=== PATIENT | female | born 1950 | race African-American/Black ===

== ENCOUNTER 2016-10-23 11:08 | Emergency (ER) | payer SELFPAY ==
[~2016-10-23] VITALS: Ht 165.1 cm; Wt 99.8 kg
[2016-10-23 11:08] VITALS: BP 0/0
[2016-10-23] MEDS ORDERED: SODIUM BICARBONATE 8.4% INJ 50ML SYRINGE ONE (11:12)
[2016-10-23] MEDS ORDERED: EPINEPHrine HCL 1 MG/10 ML SYRG ONE (11:12)
[2016-10-23] MEDS ORDERED: EPINEPHrine HCL 1 MG/10 ML SYRG IV ONE ×2 (16:21→21:00)
[2016-10-23] MEDS ORDERED: DEXTROSE (50%) 50ML SYRG IV ONE (16:21)
[2016-10-23] MEDS ORDERED: SODIUM BICARBONATE 8.4% INJ 50ML SYRINGE IV ONE ×2 (16:21→21:00)
== END 2016-10-23 18:53 | disposition expired ==
LOC: ER 11:08
DX: I46.9 Cardiac arrest, cause unspecified (principal); I48.91 Unspecified atrial fibrillation; J44.9 Chronic obstructive pulmonary disease, unspecified; K21.9 Gastro-esophageal reflux disease without esophagitis; I10 Essential (primary) hypertension; R41.82 Altered mental status, unspecified; Z95.1 Presence of aortocoronary bypass graft; Z88.0 Allergy status to penicillin
CPT/HCPCS: 31500; 92950; 99285; J0171; J7042